=== PATIENT | female | born 1990 | race Caucasian/White ===

== ENCOUNTER 2022-11-27 08:29 | Day surgery (SDC) | payer OTHER ==
[~2022-11-27] VITALS: Ht 162.6 cm; Wt 84.4 kg
[~2022-11-27 08:29] MED LIST: AZIT200SU; BUSP10 PO; BUSP5 PO; CITA20 PO; Celexa40 MG PO; Citalopram HBr40 MG PO; ENOX60I SC; HYDACE5 PO; HYDROCODONE-AC1 EAC1; METERG.2 PO; OMEP20ER PO; OMEPRAZOLE20 MG PO; PROM25; PROM25 PO; PROM25S PR; RXHYDACE PO; SPIR25 PO; SPIR50 PO; SULTRIDS PO; WARF5 PO
--- NOTE | 2022-11-27 10:31 | NUR ---
11/27/22 1031 Kathrine Santo 30 MG OF EPI USED TO SOAK PLEDGETS FOR PACKING AT [facility]. LIDOCAINE 2% DILUTED & VERIFIED WITH NS 1:1 TO MAKE LIDOCAINE 1% 1:200,000 FOR INJECTION AT [facility] BY DR BROWN. 3 MLS INJECTED.
[2022-11-27 12:26] VITALS: BP 123/81
--- NOTE | 2022-11-27 13:29 | NUR ---
11/27/22 1329 Stuart Saleh IV REMOVED INTACT. SITE WNL. PT REPORTED 2/10 PAIN UPON DISCHARGE BUT DESCRIBED PAIN TOLERABLE. SHE EXPRESSED READINESS TO RETURN HOME.
== END 2022-11-27 12:55 | disposition home or self-care (01) ==
LOC: ORSCSDS 08:29
DX: J32.4 Chronic pansinusitis (principal); J33.9 Nasal polyp, unspecified; J30.89 Other allergic rhinitis; J34.2 Deviated nasal septum; D68.51 Activated protein C resistance; Z79.899 Other long term (current) drug therapy
CPT/HCPCS: 88305; C2625; J0171; J1100; J1885; J2250; J2405; J2704; J3010; J7120